=== PATIENT | female | born 1985 | race Caucasian/White ===

== ENCOUNTER 2017-04-23 05:36 | Emergency (ER) | payer MEDICAID, OTHER ==
[~2017-04-23] VITALS: Ht 165.1 cm; Wt 68.2 kg
[2017-04-23 05:40] VITALS: BP 116/82; PULSE 73; RESP 16; O2SAT 97
--- NOTE | 2017-04-23 06:38 | ED.REPORT ---
HPI-Neck Pain Free Text HPI Notes Apr 23, 2017 ED Provider: Rhona Nolasco MD The pt is a 31 y/o female w/ a hx of depression and PTSD presenting to the ED complaining of neck pain for the last 2 days. The pt reports sleeping wrong initially as well as the weight of her head being too much to bear. She describes it as a pinch and a knot that she cant get rid of. The pain has been getting progressively worse for the last month which she partly attributes to her sleeping in a new bed. The R side is causing her more pain than the left. She has experienced similar pain in her back in the past. The pt has used 600 MG ibuprofens and marijuana w/o relief. Nursing Notes Stated Complaint: NECK PAIN Chief Complaint: Neck pain Nursing Notes Reviewed: Yes Allergies: Coded Allergies: hydrocodone (Verified Allergy, Unknown, N/V, 04/23/17) General Time Seen by Provider: 06:54 Chief Complaint Neck pain Hx Obtained From: Patient Arrived By: Walk-in Sudden in Onset?: Yes Onset Occurred: 2 days ago Symptom Duration: Since onset Recent Healthcare: No recent hospitalization, Recent doctor visit Similar Sx Previous: Yes Past Medical History Past Medical History Depression PTSD Past Surgical History None reported Smoking History Current Some Day Smoker Social History Drug Use: THC Other Social History: Good social support Ambulatory Status Independent Review of Systems Musculoskeletal: Reports: Neck pain Complete sys rev & neg: except as marked. Physical Exam Initial Vital Signs Vital Signs (First) Date Time Temp Pulse Resp B/P Pulse Ox O2 Delivery O2 Flow Rate FiO2 04/23/17 05:40 37.0 73 16 116/82 97 Room Air Initial VS: Reviewed Head / Eyes: Atraumatic, Normocephalic, PERRL ENT: Mucous membranes moist, Conjunctiva normal, No scleral icterus Respiratory: Breath sounds normal, Clear to auscultation, No respiratory distress Cardiovascular: Regular rate & rhythm, Heart sounds normal, Intact distal pulses Skin: Warm, Dry, No cyanosis Psychiatric: Mood/affect normal, Behavior normal, Normal thought content General/Constitutional: Awake, Alert Neck: Atraumatic, Supple No C-spine tenderness Neurologic: Oriented X3, Speech NL Back: No midline vertebral tend Minor R sided trapezius muscle spasms Upper Extremity / MS: Atraumatic, Inspection NL, Full range of motion, Neurologic intact, Vascular intact Interpretation & Diagnostics Lab Results Interpretation Test 04/23/17 05:40 Hold Urine Received (Received) Re-Eval/Medical Decision Source of Hx: Old records Re-Evaluation/Progress : Time of Eval: 07:30 Re-Evaluation/Progress Note: Pt rechecked. Informed pt of plan for treatment. Pt understands and agrees with plan for treatment. F/U instructions and RTER warnings given. All questions addressed. Counseled Regarding: Diagnosis, Need for follow-up, When/why to return to ED Discharge & Departure Primary Impression: Acute strain of neck muscle Encounter type: initial encounter Qualified Code: S16.1XXA - Strain of muscle, fascia and tendon at neck level, initial encounter Disposition: Home Discharge Condition All VS Reviewed: Yes Condition: Stable Additional Instructions: Thank for you entrusting us with your care today. You were diagnosed with an acute neck strain. Positioning yourself to breastfeed is likely the reason. Make an effort to get you and your son positioned so you are bringing him to your breast rather than the other way around. I strongly suggest you stop using marijuana as you are exposing your child to it when you breast feed. Use the neck collar to keep your neck stable and continue using Ibuprofen for pain relief. Follow up with physical therapy, I have given you a prescription. Please schedule an apt with Dr. Johns for further follow up as well. Please return to the emergency department if you experience any new or worsening symptoms. I hope you feel better soon. Referrals: Alexys Johns MD (PCP) ED Scribe Statement Portions of this note were transcribed by Ki Orozco. I, Dr. Nolasco personally performed the history, physical exam and medical decision-making; I reviewed and confirmed the accuracy of the information in the transcribed note. copies to: Alexys Johns MD, Shawna L MD Apr 23, 2017 06:38 Ki Orozco Apr 23, 2017 06:56
== END 2017-04-23 07:39 | disposition home or self-care (01) ==
LOC: SED 05:36
DX: S16.1XXA Strain of muscle, fascia and tendon at neck level, initial encounter (principal); X50.9XXA Other and unspecified overexertion or strenuous movements or postures, initial encounter; Y93.89 Activity, other specified; Y92.89 Other specified places as the place of occurrence of the external cause; Y99.8 Other external cause status; F32.9 Major depressive disorder, single episode, unspecified; F17.200 Nicotine dependence, unspecified, uncomplicated; Z88.5 Allergy status to narcotic agent
CPT/HCPCS: 81002; 81025; 96372; 99284; J1885